=== PATIENT | female | born 1950 | race Caucasian/White ===

== ENCOUNTER 2024-04-13 12:45 | Emergency (ER) | payer MEDICARE, SELFPAY ==
[2024-04-13 13:20] VITALS: BP 143/78; PULSE 96; RESP 16; TEMP 36.5; O2SAT 99
--- NOTE | 2024-04-13 14:40 | ED_ITS ---
HPI - General Adult General Chief complaint: Recheck/Abnormal Lab/Rx Stated complaint: PMD sent for HTN Time Seen by Provider: 04/13/24 14:32 Patient presents concerned about her BP. patient states she fell out of her chair 2 nights ago and ems came to evaluate her and said her bp was elevated. patient attempted to contact her pcp but was told to come to the ED. patient has no symptoms. LAb work ordered History of Present Illness HPI narrative: 73 y/o female presents with elevated BP reading for the past couple of blood pressure readings. patient denies headache, chest pain, abdominal pain or sob. patient attempted to get in with pcp but was told to come to the ED. patient has no complaints. Onset (ago): day(s) Related Data Home Medications ?Medication ?Instructions ?Recorded ?Confirmed ?Last Taken ?Type atorvastatin 20 mg tablet 20 mg PO DAILY 05/29/22 05/29/22 Unknown History blood-glucose meter (True Metrix #1 ea 05/29/22 05/29/22 Unknown History Glucose Meter) dicyclomine 10 mg capsule 10 mg PO QID PRN 05/29/22 Unknown History ergocalciferol (vitamin D2) 1,250 1,250 mcg PO WEEKLY 05/29/22 05/29/22 Unknown History mcg (50,000 unit) capsule escitalopram oxalate 10 mg tablet 10 mg PO DAILY 05/29/22 05/29/22 Unknown History lancets 28 gauge (TRUEplus Lancets) #100 ea 05/29/22 05/29/22 Unknown History lisinopril 20 mg tablet 20 mg PO DAILY 05/29/22 05/29/22 Unknown History metformin 500 mg tablet,extended 1,500 mg PO .COMPLEX 05/29/22 05/29/22 Unknown History release 24hr (osmotic) oxybutynin chloride 5 mg tablet 5 mg PO BID 05/29/22 05/29/22 Unknown History rosuvastatin 20 mg tablet 20 mg PO DAILY 05/29/22 05/29/22 Unknown History Allergies Allergy/AdvReac Type Severity Reaction Status Date / Time Sulfa (Sulfonamide Allergy Unknown Anaphylaxis Verified 04/13/24 12:47 Antibiotics) Review of Systems 2 Review of Systems: All systems reviewed & are unremarkable except as noted in HPI and below PMFSH Past Medical History Medical History (Updated 04/13/24 @ 15:22 by Vinod Echeverria APRN) Depression Granulomatous hepatitis Urinary incontinence COVID-19 long hauler JANNET (obstructive sleep apnea) Obesity, unspecified Neuropathy Granulomatous hepatitis Essential hypertension Diabetes mellitus type 2 in obese Colon cancer screening Chronic cholecystitis with calculus Surgical History Surgical History (Updated 05/29/22 @ 13:38 by Adrienne JohnsonMD) Hx of tonsillectomy Pilonidal cyst History of cholecystectomy Family History Family History Father Family history of cardiovascular disease Acute myocardial infarction Mother Family history of cardiovascular disease Acute myocardial infarction Family history of coronary artery disease Sibling Diabetes mellitus Cerebrovascular accident Family history of malignant neoplasm Social History Social History Smoking status: Never smoker Alcohol intake: never Substance use: never Substance use type: does not use Exam 2 Narrative: General appearance: Well-developed, well-nourished Skin: Normal color Head: Normocephalic, nontraumatic Eyes: Clear conjunctiva ENT: Oropharynx normal, ears normal, nose normal Neck: Supple, nontender Chest and respiratory: Airway patent, no respiratory distress, no accessory muscle use Heart: Regular rate/rhythm Abdomen: Soft, nontender, no organomegaly, quiet bowel sounds Vascular: Normal peripheral pulses, normal capillary refill. Musculoskeletal: Normal range of motion, nontender back Neurologic: Alert and oriented ?3, [employer] is normal as tested, no gross motor deficit Course Course Emergency Course: Will get some basic labs and repeat blood pressure. Will start on antihypertensive medication. Vital Signs Vital signs: Vital Signs Temperature 36.5 C 04/13/24 13:20 Pulse Rate 96 04/13/24 13:20 Respiratory Rate 16 04/13/24 13:20 Blood Pressure 143/78 H 04/13/24 13:20 Pulse Oximetry 99 04/13/24 13:20 Oxygen Delivery Room Air 04/13/24 13:20 Temperature 36.5 C 04/13/24 13:20 Pulse Rate 96 04/13/24 13:20 Respiratory Rate 16 04/13/24 13:20 Blood Pressure 143/78 H 04/13/24 13:20 Pulse Oximetry 99 04/13/24 13:20 Oxygen Delivery Room Air 04/13/24 13:20 Medical Decision Making MDM Narrative Medical decision making narrative: Differential diagnosis: Acute kidney injury vs electrolyte abnormality Will start on Norvasc daily have the patient follow-up primary care Vital Signs Vital Signs: Vital Signs Temperature 36.5 C 04/13/24 13:20 Pulse Rate 96 04/13/24 13:20 Respiratory Rate 16 04/13/24 13:20 Blood Pressure 143/78 H 04/13/24 13:20 Pulse Oximetry 99 04/13/24 13:20 Oxygen Delivery Room Air 04/13/24 13:20 Temperature 36.5 C 04/13/24 13:20 Pulse Rate 96 04/13/24 13:20 Respiratory Rate 16 04/13/24 13:20 Blood Pressure 143/78 H 04/13/24 13:20 Pulse Oximetry 99 04/13/24 13:20 Oxygen Delivery Room Air 04/13/24 13:20 Lab Data 04/13/24 14:51 04/13/24 14:51 Labs: Lab Results 04/13/24 Range/Units 14:51 WBC 7.4 (4.5-10.0) K/mm3 RBC 4.64 (4.2-5.4) M/mm3 Hgb 14.5 (12.0-15.0) g/dL Hct 42.9 (37.0-47.0) % MCV 92.5 (80-100) fl MCH 31.3 (26-34) pg MCHC 33.8 (32-36) g/dl RDW 12.8 (11.5-14.5) % Plt Count 192 (150-375) k/mm3 MPV 11.6 H (7.4-10.4) fl Immature Gran % (Auto) 0.3 (0-0.5) % Neut % (Auto) 69.4 (45.5-73.1) % Lymph % (Auto) 20.2 (18.3-44.2) % Grainger % (Auto) 7.9 (2.6-8.5) % Eos % (Auto) 1.7 (0-4.4) % Baso % (Auto) 0.5 (0.2-1.2) % Lymph # (Auto) 1.50 (0.9-3.2) K/mm3 Grainger # (Auto) 0.6 (0.1-0.6) K/mm3 Eos # (Auto) 0.1 (0-0.3) K/mm3 Baso # (Auto) 0.0 (0.0-0.1) K/mm3 Abs Immat Gran (auto) 0.02 (0.00-0.031) K/mm3 Absolute Neuts (auto) 5.2 (1.3-6.7) K/mm3 Absolute Nucleated RBC 0.000 (0.0-0.012) K/mm3 Nucleated RBC % 0.0 (0.0-0.2) % Sodium 139 (137-145) mmol/L Potassium 4.2 (3.4-5.0) mmol/L Chloride 106 (98-107) mmol/L Carbon Dioxide 27 (22-30) mmol/L Anion Gap 6 (4-12) mmol/L BUN 18 H (7-17) mg/dL Creatinine 0.80 (0.7-1.0) mg/dL Estim Creat Clear Calc 71 ml/min Estimated GFR > 60 (59 - ) Glucose 130 H (65-110) mg/dL Calcium 9.4 (8.4-10.2) mg/dL Magnesium 2.4 H (1.6-2.3) mg/dL Total Bilirubin 0.6 (0.2-1.3) mg/dL AST 29 (14-36) U/L ALT 19 (6-35) U/L Alkaline Phosphatase 103 (38-126) U/L Total Protein 8.0 (6.3-8.2) g/dL Albumin 4.4 (3.5-5.1) g/dL Discharge Plan Discharge Clinical Impression: Hypertension Patient Disposition: Home, Self-Care Condition: Stable Instructions: Antibiotic Form, Hypertension (ED) Additional Instructions: Take medication as prescribed Return for any worsening signs Follow-up primary care doctor in 2 weeks to have blood pressure recheck Patient Language: Uzbek Prescriptions: New hydrochlorothiazide 12.5 mg capsule 12.5 mg PO DAILY Qty: 30 0RF No Action (DME) blood-glucose meter [True Metrix Glucose Meter] Misc See Rx Instructions .ROUTE .MEDSUPPLY Qty: 1 Rx Instructions: As directed (DME) lancets [TRUEplus Lancets] 28 gauge misc See Rx Instructions .ROUTE .MEDSUPPLY Qty: 100 Rx Instructions: As directed albuterol sulfate [Ventolin HFA] 90 mcg/actuation HFA aerosol inhaler 1 inh inhalation Q6H PRN (Reason: shortness of breath or wheezing) Qty: 8.5 0RF pantoprazole [Protonix] 40 mg tablet,delayed release (DR/EC) 40 mg PO QAM Qty: 30 0RF rosuvastatin 20 mg tablet 20 mg PO DAILY oxybutynin chloride 5 mg tablet 5 mg PO BID lisinopril 20 mg tablet 20 mg PO DAILY metformin 500 mg tablet extended release 24hr 1,500 mg PO .COMPLEX Rx Instructions: 1,500 mg orally am; escitalopram oxalate 10 mg tablet 10 mg PO DAILY dicyclomine 10 mg capsule 10 mg PO QID PRN atorvastatin 20 mg tablet 20 mg PO DAILY ergocalciferol (vitamin D2) 1,250 mcg (50,000 unit) capsule 1,250 mcg PO WEEKLY Follow-up/Referrals: PHYSICIAN NOT ON STAFF,NONSTAFF [Non-Staff] - 2 Weeks Time of Disposition: 15:23
[2024-04-13 14:59] LABS: Basophils Percent Auto 0.5 % (0.2-1.2); Eosinophils Absolute Auto 0.1 K/mm3 (0-0.3); Eosinophils Percent Auto 1.7 % (0-4.4); Hematocrit 42.9 % (37.0-47.0); Hemoglobin 14.5 g/dL (12.0-15.0); Immature Granulocyte Absolute 0.02 K/mm3 (0.00-0.031); Immature Granulocyte Percent A 0.3 % (0-0.5); Lymphocytes Percent Auto 20.2 % (18.3-44.2); Mean Corpuscular HGB Conc 33.8 g/dl (32-36); Mean Corpuscular Hemoglobin 31.3 pg (26-34); Mean Corpuscular Volume 92.5 fl (80-100); Mean Platelet Volume 11.6 fl (7.4-10.4); Monocytes Absolute Auto 0.6 K/mm3 (0.1-0.6); Monocytes Percent Auto 7.9 % (2.6-8.5); Neutrophils Absolute Auto 5.2 K/mm3 (1.3-6.7); Neutrophils Percent Auto 69.4 % (45.5-73.1); Platelet Count Result 192 k/mm3 (150-375); Red Blood Count 4.64 M/mm3 (4.2-5.4); Red Cell Distribution Width 12.8 % (11.5-14.5); White Blood Count 7.4 K/mm3 (4.5-10.0)
[2024-04-13 15:07] LABS: Alanine Aminotransferase 19 U/L (6-35); Albumin Level 4.4 g/dL (3.5-5.1); Alkaline Phosphatase 103 U/L (38-126); Anion Gap 6 mmol/L (4-12); Aspartate Amino Transferase 29 U/L (14-36); Bilirubin,Total 0.6 mg/dL (0.2-1.3); Blood Urea Nitrogen 18 mg/dL (7-17); Calcium 9.4 mg/dL (8.4-10.2); Carbon Dioxide 27 mmol/L (22-30); Chloride 106 mmol/L (98-107); Estimated CRCL calculation 71 ml/min; Estimated Glomerular Filt Rate > 60; Glucose 130 mg/dL (65-110); Magnesium 2.4 mg/dL (1.6-2.3); Potassium 4.2 mmol/L (3.4-5.0); Sodium 139 mmol/L (137-145)
== END 2024-04-13 15:33 | disposition home or self-care (01) ==
LOC: ANHED 15:22
PROVIDERS: Emergency Provider Nurse Practitioner Family
DX: I10 Essential (primary) hypertension (principal); E11.40 Type 2 diabetes mellitus with diabetic neuropathy, unspecified; E66.9 Obesity, unspecified; G47.33 Obstructive sleep apnea (adult) (pediatric); K75.3 Granulomatous hepatitis, not elsewhere classified; F32.A Depression, unspecified; Z90.49 Acquired absence of other specified parts of digestive tract; Z79.899 Other long term (current) drug therapy; Z79.84 Long term (current) use of oral hypoglycemic drugs
CPT/HCPCS: 36415; 80053; 83735; 85025; 99283